=== PATIENT | male | born 1975 | race Caucasian/White ===

== ENCOUNTER 2017-02-04 14:33 | Inpatient (IN) | payer MEDICAID ==
[2017-02-04] MEDS ORDERED: cloNIDine 0.1 MG TABLET PO STA (15:33)
[2017-02-04] MEDS ORDERED: LORazepam 2 MG/ML SYRINGE IVP STA ×3 (15:33→19:52)
[2017-02-04] MEDS ORDERED: SODIUM CHLORIDE 0.9% 1,000 ML IV ONE ×2 (15:33→19:43)
[2017-02-04 16:36] LABS: BASOPHILS # (AUTO) 0.2 10^3/uL (0.0-0.1); BASOPHILS % (AUTO) 1.2 %; EOSINOPHILS # (AUTO) 0.2 10^3/uL (0.0-0.7); EOSINOPHILS % (AUTO) 1.9 %; HCT - HEMATOCRIT 34.5 % (42.0-52.0); HGB - HEMOGLOBIN 10.4 g/dL (14.0-18.0); LYMPHOCYTES # (AUTO) 1.9 10^3/uL (1.5-3.5); LYMPHOCYTES % (AUTO) 15.3 %; MEAN CORPUSCULAR HEMOGLOBIN 20.6 pg (27.0-31.0); MEAN CORPUSCULAR HGB CONC 30.2 g/dL (32.0-36.0); MEAN CORPUSCULAR VOLUME 68.5 fL (80.0-94.0); MEAN PLATELET VOLUME 7.3 fL (7.4-11.4); MONOCYTES # (AUTO) 0.6 10^3/uL (0.0-1.0); MONOCYTES % (AUTO) 4.9 %; NEUTROPHILS # (AUTO) 9.7 10^3/uL (1.5-6.6); NEUTROPHILS % (AUTO) 76.7 %; RED BLOOD COUNT 5.04 10^6/uL (4.70-6.10); RED CELL DISTRIBUTION WIDTH 17.8 % (12.0-15.0); UNCORRECTED WHITE BLOOD COUNT 12.6 x10^3/uL; WHITE BLOOD COUNT 12.6 x10^3/uL (4.8-10.8)
[2017-02-04 16:45] LABS: ALBUMIN/GLOBULIN RATIO 0.7 (1.0-2.2); BILIRUBIN,TOTAL 0.3 mg/dL (0.2-1.0); CALCIUM 8.7 mg/dL (8.5-10.3); CREATININE 1.1 mg/dL (0.6-1.2); POTASSIUM 4.1 mmol/L (3.5-5.0); TOTAL PROTEIN 8.2 g/dL (6.7-8.2)
[2017-02-04] MEDS ORDERED: LORazepam 2 MG/ML SYRINGE ONE ×3 (16:52→20:12)
[2017-02-04 16:57] LABS: PLATELET ESTIMATE, MANUAL INCREASED (>450,000) (NORMAL); PLATELET MORPHOLOGY NORMAL APPEARANCE (NORMAL)
--- NOTE | 2017-02-04 17:35 | ED Physician Documentation ---
History of Present Illness - Stated complaint Stated Complaint: FATIGUE/SOA - Chief complaint Chief Complaint: General - Additonal information Additional information: hx from pt 42 male uses heroin (IM) and daily drinker just released from 5 days of detox his narcotic withdrawal was managed with suboxone and clonidine does not sound like his alcohol withdrawal was addressed he had several abscesses drained and was started on bactrim and keflex blood work was drawn and he was told he was profoundly anemic and needed a transfusion but this was not done pt states he is very weak and that he fell numerous times at detox and he is soa with any exertion no fever cough no calf swelling Review of Systems Constitutional: denies: Fever Cardiac: denies: Chest pain / pressure Respiratory: reports: Dyspnea. denies: Cough GI: denies: Abdominal Pain, Nausea, Vomiting Neurologic: reports: Generalized weakness Endocrine: denies: Easy bruising / bleeding Immunocompromised: denies: Immunocompromised (states had HIV and Hepatitis tests and they were neg) PD PAST MEDICAL HISTORY - Past Medical History Past Medical History: No - Past Surgical History Past Surgical History: No - Present Medications Home Medications: Ambulatory Orders Medication Instructions Recorded Confirmed Buprenorphine HCl/Naloxone HCl 2 tab PO DAILY 02/04/17 02/04/17 [Suboxone 4 mg-1 mg Sl Film] Cephalexin [Keflex] 500 mg PO TID 02/04/17 02/04/17 Sulfamethox/Trimeth 800/160 1 tab PO BID 02/04/17 02/04/17 [Bactrim Ds] cloNIDine [Catapres] 0.1 mg PO DAILY 02/04/17 02/04/17 - Allergies Allergies/Adverse Reactions: Allergies Allergy/AdvReac Type Severity Reaction Status Date / Time No Known Drug Allergies Allergy Verified 02/04/17 14:46 - Social History Does the pt smoke?: No Smoking Status: Never smoker Does the pt drink ETOH?: Yes Does the pt have substance abuse?: Yes Substance Use and Type: Heroin PD ED PE NORMAL - Vitals Vital signs reviewed: Yes - General General: Alert and oriented X 3, Other (pale sweaty shaking) - HEENT HEENT: PERRL - Neck Neck: Supple, no meningeal sign - Cardiac Cardiac: RRR, Other (faint upper sternal border murmur) - Respiratory Respiratory: No respiratory distress, Clear bilaterally - Abdomen Abdomen: Soft, Non tender - Derm Derm: Other (pale sweaty) - Extremities Extremities: No edema, No calf tenderness / cord - Neuro Neuro: Alert and oriented X 3, Other (very weak) Results - Vitals Vitals: Vital Signs - 24 hr 02/04/17 02/04/17 02/04/17 14:43 17:05 17:44 Temperature 36.8 C Heart Rate 98 84 86 Respiratory 22 17 18 Rate Blood Pressure 140/93 H 131/80 H 132/73 H O2 Saturation 100 100 100 02/04/17 02/04/17 19:12 20:00 Temperature Heart Rate 87 92 Respiratory 17 24 Rate Blood Pressure 112/41 L 154/76 H O2 Saturation 100 100 Oxygen O2 Source Room air - EKG (time done) 1628 Rate: Rate (enter#) (80) Rhythm: NSR [place]: Normal Intervals: Normal [place] Ischemia: Normal ST segments - Labs Labs: Laboratory Tests 02/04/17 02/04/17 02/04/17 16:19 16:19 16:19 WBC 12.6 H RBC 5.04 Hgb 10.4 L Hct 34.5 L MCV 68.5 L MCH 20.6 L MCHC 30.2 L RDW 17.8 H Plt Count 559 H MPV 7.3 L Neut # 9.7 H Lymph # 1.9 [place] # 0.6 Eos # 0.2 Baso # 0.2 H Absolute Nucleated RBC 0.00 Nucleated RBCs 0.0 Manual Slide Review Indicated Platelet Estimate INCREASED (>450,000) Platelet Morphology NORMAL APPEARANCE RBC Morph Micro Appear 1+ MICROCYTOSIS Sodium 137 Potassium 4.1 Chloride 102 Carbon Dioxide 25 Anion Gap 10.0 BUN 30 H Creatinine 1.1 Estimated GFR (MDRD) 73 L Glucose 106 H Lactic Acid Calcium 8.7 Total Bilirubin 0.3 AST 37 ALT 60 Alkaline Phosphatase 69 Troponin I < 0.04 Total Protein 8.2 Albumin 3.5 Globulin 4.7 H Albumin/Globulin Ratio 0.7 L Lipase 53 H Blood Type Antibody Screen 02/04/17 02/04/17 16:19 16:19 WBC RBC Hgb Hct MCV MCH MCHC RDW Plt Count MPV Neut # Lymph # [place] # Eos # Baso # Absolute Nucleated RBC Nucleated RBCs Manual Slide Review Platelet Estimate Platelet Morphology RBC Morph Micro Appear Sodium Potassium Chloride Carbon Dioxide Anion Gap BUN Creatinine Estimated GFR (MDRD) Glucose Lactic Acid 1.3 Calcium Total Bilirubin AST ALT Alkaline Phosphatase Troponin I Total Protein Albumin Globulin Albumin/Globulin Ratio Lipase Blood Type A POSITIVE Antibody Screen NEGATIVE - Rads (name of study) CXR Radiology: See rad report (no acute) PD MEDICAL DECISION MAKING - ED course ED course: alcohol withdrawal - txed with ativan narcotic withdawal - gave more clonidine and pt on suboxone and was allowed to take his own while in the ER anemia - not needing a transfusion and not severe enough to be causing weakness and dyspnea dyspnea - no pna on CXR, pr admitted to detox but not immobilized and very restless so doubt he developed a DVT PE faint upper sternal murmur on exam + dyspnea in IVDA meritis echo - echo gone for the day - will obs overnight - if transthoracic and blood cultures are both neg doubt endocarditis, if blood cx + and TTE neg will need transfer to will admit for echo and further tx of etoh and /or narcotic wdrawal Departure - Departure Disposition: 66 [facility] DC/Xfer Clinical Impression: Alcohol withdrawal, Narcotic withdrawal, Dyspnea, Murmur, Anemia
--- NOTE | 2017-02-04 18:12 | XRAY Preliminary Report ---
Exam: XR Chest 1 View IMPRESSION: No acute intrathoracic plain film abnormality. [facility] SITE ID: [id number]
--- NOTE | 2017-02-04 18:15 | XRAY Report ---
EXAM: CHEST RADIOGRAPHY EXAM DATE: 02/04/2017 05:47 PM. CLINICAL HISTORY: Dyspnea. COMPARISON: None. TECHNIQUE: 1 view. FINDINGS: Lungs/Pleura: No focal opacities evident. No pleural effusion. No pneumothorax. Mediastinum: Within exam limitations, cardiomediastinal contour is normal. Other: None. IMPRESSION: No acute intrathoracic plain film abnormality. [facility] Referring Provider Line: [phone] SITE ID: [id number]
[2017-02-04] MEDS ORDERED: FOLIC ACID INJ 1 MG, THIAMINE INJ 100 MG, MAGNESIUM SULFATE 2 GM, MULTIVITAMIN 10 ML in... IV STA ×5 (19:43)
[2017-02-04] MEDS ORDERED: MAGNESIUM SULFATE 2 GRAM 50 ML IV ONE (20:13)
[2017-02-04] MEDS ORDERED: LORazepam 2 MG/ML SYRINGE IM STA (20:25)
[2017-02-04] MEDS ORDERED: ZOLPIDEM 5 MG TABLET PO PRN (20:43)
[2017-02-04] MEDS ORDERED: ONDANSETRON 4 MG/2 ML VIAL IVP PRN (20:43)
[2017-02-04] MEDS ORDERED: PROCHLORPERAZINE 10 MG/2 ML VIAL IVP PRN (20:43)
[2017-02-04] MEDS ORDERED: LORazepam 0.5 MG TABLET PO PRN (20:50)
[2017-02-04] MEDS ORDERED: cloNIDine 0.1 MG TABLET PO PRN (20:50)
[2017-02-04] MEDS: SODIUM CHLORIDE 0.9% 1,000 ML IV SCH (22:58)
[2017-02-04] MEDS: SODIUM CHLORIDE FLUSH 0.9% 10 ML SYRINGE IVP SCH (22:58)
[2017-02-05] MEDS ORDERED: BUPRENORPHINE HCL PO SCH ×3 (01:35→09:00)
[2017-02-05] MEDS ORDERED: NALOXONE HCL PO SCH ×3 (01:35→09:00)
[2017-02-05] MEDS ORDERED: VANCOMYCIN PER PHARMACY 1 GM in SODIUM CHLORIDE 0.9% 250 ML IV SCH (02:00)
[2017-02-05] MEDS ORDERED: VANCOMYCIN INJ 1.25 GM in SODIUM CHLORIDE 0.9% 250 ML IV SCH (02:00)
--- NOTE | 2017-02-05 03:26 | Ultrasound Preliminary Report ---
Exam: US Pelvic - Male IMPRESSION: Heterogeneous abnormalities within the right gluteal region measuring 2.7 x 1.0 x 0.8 cm and 1.1 x 0.9 x 0.5 cm. These are difficult to characterize. Abscesses could account for this appeara nce. [facility] SITE ID: [id number]
--- NOTE | 2017-02-05 03:44 | Ultrasound Report ---
EXAM: PELVIC ULTRASOUND EXAM DATE: 02/05/2017 02:41 AM. CLINICAL HISTORY: Gluteal abscess. COMPARISON: None. TECHNIQUE: Grayscale and color flow images are acquired. FINDINGS: At the clinically noted site of gluteal abscesses, there are two heterogeneous hypoechoic collections . The laterally located dominant collection measures 2.7 x 1.0 x 0.8 cm. Medially located collection measuring 1.1 x 0.9 x 0.5 cm. Both of these collections are relatively avascular. There is a 13 cm lo ng scar obliquely traversing through the right gluteal region. IMPRESSION: Heterogeneous abnormalities within the right gluteal region measuring 2.7 x 1.0 x 0.8 cm and 1.1 x 0. 9 x 0.5 cm. These are difficult to characterize. Abscesses could account for this appearance. [facility] Referring Provider Line: [phone] SITE ID: [id number]
--- NOTE | 2017-02-05 03:55 | HISTORY & PHYSICAL EXAMINATION ---
Chief Complaint - Chief Complaint Chief Complaint: Weakness, fatigue and tremors History of Present Illness - Admitted From Admitted From:: Emergency Department - History Obtained From Records Reviewed: Yes History obtained from: Patient Exam Limitations: None - History of Present Illness HPI Comment/Other: Patient is a 42 year old male with past medical history of iron deficiency anemia, gluteal abscesses, insomnia, chronic back pain and IV drug abuse with heroin who presented to the emergency department with chief complaint of generalized weakness, fatigue and tremors. The patient states that he had been clean from heroin for nearly 10 years but 8 months ago started using again as he was having back pain and insomnia. He states initially when he started back up he was still functional and continuing to work but for the past 1.5 months he has been unable to work and was not functional at all. He continued to use IV heroin all day every day. Finally one week ago he decided he wanted to stop. He went to [facility] for detox. At [place] he was found to have a right gluteal abscess that was drained and he was prescribed antibiotics. There was however no beds at their facility so the patient was sent to a detox facility in [facility]. He states he had to private pay them $ 3000 up front and another $1000 after he started treatment as he did not have any insurance. The patient states that he was started back up on suboxone at the detox facility and they sent him home after 4 days as he no longer had money to pay privately. The patient states that when he arrived at the facility he was able to walk into the facility under his own strength but he needed a wheelchair when he was sent home. He states that since returning home he has been getting weaker and weaker to a point where he can barely stand up. He also states he is very fatigued and gets fatigued and short of breath after just walking 5 feet and cannot get any further because he feels so tired. The patient states that this afternoon he began to have uncontrollable tremors and finally asked his mom to bring him to the hospital because he was too weak to function at home. The patient admits to being diaphoretic, having tremors and being very weak. He states he has felt very cold but does not think he has had any fevers. He states that the abscess on his right gluteal region continues to drain but has not improved despite the antibiotics. He denies any chest pain, orthopnea, increased lower extremity swelling, abdominal pain, nausea, vomiting , urinary symptoms or any focal neurological deficits. Patient was found to be in active withdrawal in the ER as he was having tremors and was too weak to stand up or be able to go home and function. The patient was found to have a leukocytosis and continued to have firm gluteal abscess on the right gluteal area with purulent drainage. He was admitted to the hospital for heroin withdrawal and treatment of his gluteal abscess. Review of Systems - Other Findings Other Findings: A comprehensive review of systems was performed and the pertinent positives and negatives are stated above in the HPI. History - Past Medical History Cardiovascular: reports: Murmur Respiratory: reports: None Neuro: reports: Tremors, Fainting Endocrine/Autoimmune: reports: None GI: reports: None : reports: None HEENT: reports: None Psych: reports: Depression, Anxiety Musculoskeletal: reports: Chronic back pain Derm: reports: None MRSA Hx?: No Other Past Medical History: 1. IV drug abuse with heroin. 2. Insomnia. 3. Chronic back pain. 4. Iron Deficiency Anemia. 5. History of gluteal abscess - Family & Social History Family History: Mother: Alive and Well Family History Comment/Other: No family history of alcohol or drug abuse. No family history of heart disease or stroke. Living arrangement: At home Living Situation: Alone Social History Notes: Patient lives in [place] in a family cabin. He lives alone but his mother also lives on [facility] [address]. The patient does not have any kids or a . He is a olivo by trade. He started using heroin at 20 years of age and was an addict for sometime before he was able to get clean and was on methadone for many years and then switched to suboxone. He states that he did have a short time in his 30s where he went back to using but had been clean for more than 10 years before he started back up 8 months ago. He states he drinks 2-4 beers a day but his last drink was 8 days ago. He does not smoke. - Substance History Use: Uses substance without health or social issues: Alcohol Use Issues: Intoxication Abuse: Recurrent use of substance despite neg consequences: Opioid Dependence: Experiences withdrawal or developed tolerances: Opioid Dependence Issues: Withdrawal - POLST Patient has POLST: No POLST Status: Full Code Meds/Allgy - Home Medications Home Medications: Ambulatory Orders Medication Instructions Recorded Confirmed Buprenorphine HCl/Naloxone HCl 2 tab PO DAILY 02/04/17 02/04/17 [Suboxone 4 mg-1 mg Sl Film] Cephalexin [Keflex] 500 mg PO TID 02/04/17 02/04/17 Sulfamethox/Trimeth 800/160 1 tab PO BID 02/04/17 02/04/17 [Bactrim Ds] cloNIDine [Catapres] 0.1 mg PO DAILY 02/04/17 02/04/17 - Allergies Allergies/Adverse Reactions: Allergies Allergy/AdvReac Type Severity Reaction Status Date / Time No Known Drug Allergies Allergy Verified 02/04/17 14:46 Exam - Vital Signs Reviewed Vital Signs: Yes Vital Signs: Vital Signs x48h Temp Pulse Pulse Resp BP BP Pulse Ox 02/05/17 00:07 36.7 C 98 20 117/75 100 02/04/17 22:06 36.3 C L 107 H 22 139/69 H 99 02/04/17 21:09 89 18 111/80 94 - Physical Exam General Appearance: positive: Moderate distress (Patient is tremulous, diaphoretic and appears quiet ill.), Anxious, Other (He is very thin appearing.) Eyes Bilateral: positive: Normal inspection, PERRL, EOMI, No lid inflammation, Conjunctivae nml, No scleral icterus ENT: positive: ENT inspection nml, Pharynx nml, Dry mucous membranes. negative : Purulent nasal drainage, Pharyngeal erythema, Oral lesions Neck: positive: Nml inspection, Thyroid nml, No JVD, Trachea midline. negative : Thyromegaly, Lymphadenopathy (R), Lymphadenopathy (L), Carotid bruit, Tracheal deviation Respiratory: positive: Chest non-tender, No respiratory distress, Breath sounds nml. negative: Wheezes, Rales, Rhonchi Cardiovascular: positive: Regular rate & rhythm, No gallop, Systolic murmur Peripheral Pulses: positive: 2+ Abdomen: positive: Non-tender, No organomegaly, Nml bowel sounds, No distention. negative: Guarding, Rebound, Hepatomegaly Back: positive: Nml inspection. negative: CVA tenderness (R), CVA tenderness (L ) Skin: positive: Diaphoresis, Other (Right gluteal area is indurated with drainage. 2 separate area appear to have purulent drainage and likely abscess.) . negative: Pallor Extremities: positive: Non-tender, Full ROM, Nml appearance, No pedal edema Neurologic/Psychiatric: positive: Oriented x3, CN's nml (2-12), Motor nml, Sensation nml, Depressed mood/affect (Anxious) Conclusion/Plan - Problem List (1) Heroin withdrawal Conclusion/Plan: Patient appears to be going through active withdrawal as he is tremulous, diaphoretic and extremely fatigued and weak His detox was cut short as he was at a private institution and he ran out of money Patient was sent home with suboxone but has not been doing well Plan: Continue home dose of suboxone Avoid opioids Ativan prn for anxiety Clonidine PO Social work consult for possible placement (2) Heroin abuse Conclusion/Plan: Patient was counselled Will get social work consult to give patient further resources (3) Abscess, gluteal, right Conclusion/Plan: Patient appears to have 2 right gluteal abscesses that were drained 1 week ago but continues to have fluid pocket and drainage Patient has an elevated WBC and was having tremors and chills at home but no fever or other signs of sepsis Plan: CT of pelvis for better see abscess as there maybe deeper abscess present IV vancomycin while hospitalized May need possible Surgery consult for I&D (4) Iron deficiency anemia Conclusion/Plan: Patient has iron deficiency anemia is on iron at home Likely secondary to poor nutrition Continue iron supplementation while hospitalized (5) Fatigue Conclusion/Plan: New onset of fatigue since detox 1 week ago. Patient also describes what appears to almost be exertional dyspnea Could be secondary to withdrawal or de-conditioning from months of heroin Given murmur and concern that this is dyspnea on exertion will get Echocardiogram Patient also is at risk for endocarditis. (6) Prophylactic use of low molecular weight heparin for venous thromboembolism Conclusion/Plan: Place on lovenox - Lab Results Lab results reviewed: Yes Fish Bones: 02/04/17 16:19 02/04/17 16:19 Other Lab Results: Laboratory Results WBC 12.6 x10^3/uL (4.8-10.8) H 02/04/17 16:19 RBC 5.04 10^6/uL (4.70-6.10) 02/04/17 16:19 Hgb 10.4 g/dL (14.0-18.0) L 02/04/17 16:19 Hct 34.5 % (42.0-52.0) L 02/04/17 16:19 MCV 68.5 fL (80.0-94.0) L 02/04/17 16:19 MCH 20.6 pg (27.0-31.0) L 02/04/17 16:19 MCHC 30.2 g/dL (32.0-36.0) L 02/04/17 16:19 RDW 17.8 % (12.0-15.0) H 02/04/17 16:19 Plt Count 559 10^3/uL (130-450) H 02/04/17 16:19 MPV 7.3 fL (7.4-11.4) L 02/04/17 16:19 Neut # 9.7 10^3/uL (1.5-6.6) H 02/04/17 16:19 Lymph # 1.9 10^3/uL (1.5-3.5) 02/04/17 16:19 [place] # 0.6 10^3/uL (0.0-1.0) 02/04/17 16:19 Eos # 0.2 10^3/uL (0.0-0.7) 02/04/17 16:19 Baso # 0.2 10^3/uL (0.0-0.1) H 02/04/17 16:19 Absolute Nucleated RBC 0.00 x10^3/uL 02/04/17 16:19 Nucleated RBCs 0.0 /100WBC 02/04/17 16:19 Manual Slide Review Indicated 02/04/17 16:19 Platelet Estimate INCREASED (>450,000) (NORMAL) 02/04/17 16:19 Platelet Morphology NORMAL APPEARANCE (NORMAL) 02/04/17 16:19 RBC Morph Micro Appear 1+ ANISOCYTOSIS (NORMAL) 1+ MICROCYTOSIS (NORMAL) 16:19 RBC Morph Micro Appear 1+ ANISOCYTOSIS (NORMAL) 1+ MICROCYTOSIS (NORMAL) 16:19 Sodium 137 mmol/L (135-145) 02/04/17 16:19 Potassium 4.1 mmol/L (3.5-5.0) 02/04/17 16:19 Chloride 102 mmol/L (101-111) 02/04/17 16:19 Carbon Dioxide 25 mmol/L (21-32) 02/04/17 16:19 Anion Gap 10.0 (6-13) 02/04/17 16:19 BUN 30 mg/dL (6-20) H 02/04/17 16:19 Creatinine 1.1 mg/dL (0.6-1.2) 02/04/17 16:19 Estimated GFR (MDRD) 73 (>89) L 02/04/17 16:19 Glucose 106 mg/dL (70-100) H 02/04/17 16:19 Lactic Acid 1.3 mmol/L (0.5-2.2) 02/04/17 16:19 Calcium 8.7 mg/dL (8.5-10.3) 02/04/17 16:19 Total Bilirubin 0.3 mg/dL (0.2-1.0) 02/04/17 16:19 AST 37 IU/L (10-42) 02/04/17 16:19 ALT 60 IU/L (10-60) 02/04/17 16:19 Alkaline Phosphatase 69 IU/L (42-121) 02/04/17 16:19 Troponin I < 0.04 ng/mL (<0.49) 02/04/17 16:19 Total Protein 8.2 g/dL (6.7-8.2) 02/04/17 16:19 Albumin 3.5 g/dL (3.2-5.5) 02/04/17 16:19 Globulin 4.7 g/dL (2.1-4.2) H 02/04/17 16:19 Albumin/Globulin Ratio 0.7 (1.0-2.2) L 02/04/17 16:19 Lipase 53 U/L (22-51) H 02/04/17 16:19 Blood Type A POSITIVE 02/04/17 16:19 Antibody Screen NEGATIVE 02/04/17 16:19 - Diagnostic Imaging Results Diagnostic Imaging Results: positive: Final report reviewed Diagnostic Imaging Results Comments: Pelvic Ultrasound: Heterogeneous abnormalities within the right gluteal region measuring 2.7 x 1.0 x 0.8 cm and 1.1 x 0.9 x 0.5 cm. These are difficult to characterize. Abscesses could account for this appearance. Chest Xray: No acute process. - EKG Results EKG Interpreted Independently: Yes EKG Findings: Normal Issues/Core Measures - Anticipated LOS Anticipated Stay Length: Less than 2 midnights - DVT/VTE - Prophylaxis VTE/DVT Prophylaxis med ordered at admit?: Yes
[2017-02-05 06:38] LABS: INR 1.3 (0.8-1.2); PT - PROTHROMBIN TIME 14.6 secs (9.9-12.6)
[2017-02-05 06:41] LABS: ALBUMIN/GLOBULIN RATIO 0.9 (1.0-2.2); BILIRUBIN,TOTAL 0.5 mg/dL (0.2-1.0); CALCIUM 8.8 mg/dL (8.5-10.3); CREATININE 1.1 mg/dL (0.6-1.2); MAGNESIUM 2.1 mg/dL (1.7-2.8); POTASSIUM 3.6 mmol/L (3.5-5.0); TOTAL PROTEIN 7.4 g/dL (6.7-8.2)
[2017-02-05 06:48] LABS: BASOPHILS # (AUTO) 0.2 10^3/uL (0.0-0.1); BASOPHILS % (AUTO) 1.8 %; EOSINOPHILS # (AUTO) 0.3 10^3/uL (0.0-0.7); EOSINOPHILS % (AUTO) 3.3 %; HCT - HEMATOCRIT 30.6 % (42.0-52.0); HGB - HEMOGLOBIN 9.6 g/dL (14.0-18.0); LYMPHOCYTES # (AUTO) 1.7 10^3/uL (1.5-3.5); LYMPHOCYTES % (AUTO) 18.7 %; MEAN CORPUSCULAR HEMOGLOBIN 21.2 pg (27.0-31.0); MEAN CORPUSCULAR HGB CONC 31.2 g/dL (32.0-36.0); MEAN PLATELET VOLUME 7.2 fL (7.4-11.4); MONOCYTES # (AUTO) 0.7 10^3/uL (0.0-1.0); MONOCYTES % (AUTO) 7.3 %; NEUTROPHILS # (AUTO) 6.4 10^3/uL (1.5-6.6); NEUTROPHILS % (AUTO) 68.9 %; RED BLOOD COUNT 4.51 10^6/uL (4.70-6.10); RED CELL DISTRIBUTION WIDTH 18.2 % (12.0-15.0); UNCORRECTED WHITE BLOOD COUNT 9.2 x10^3/uL; WHITE BLOOD COUNT 9.2 x10^3/uL (4.8-10.8)
[2017-02-05] MEDS: PANTOPRAZOLE 40 MG TABLET PO SCH (07:10)
[2017-02-05] MEDS: SODIUM CHLORIDE FLUSH 0.9% 10 ML SYRINGE IVP SCH ×3 (07:15→22:31)
[2017-02-05 07:16] LABS: PLATELET ESTIMATE, MANUAL NORMAL (130-450,000) (NORMAL); PLATELET MORPHOLOGY NORMAL APPEARANCE (NORMAL)
[2017-02-05] MEDS: SODIUM CHLORIDE 0.9% 1,000 ML IV SCH ×2 (07:36→15:55)
[2017-02-05] MEDS: FERROUS SULFATE 325 MG TABLET PO SCH ×2 (08:43→17:39)
[2017-02-05] MEDS: ENOXAPARIN 40 MG/0.4 ML SYRINGE SUBQ SCH (08:43)
[2017-02-05] MEDS: POLYETHYLENE GLYCOL 3350 17 GM PACKET PO SCH (09:40)
[2017-02-05] MEDS ORDERED: CIPROFLOXACIN 400 MG/200 ML 200 ML IV SCH (10:00)
[2017-02-05] MEDS ORDERED: metroNIDAZOLE 500 MG/100 ML 100 ML IV SCH (12:00)
[2017-02-05] MEDS ORDERED: diazePAM INJ 5 MG/ML SYRINGE IVP ONE (13:49)
[2017-02-05] MEDS: SODIUM CHLORIDE FLUSH 0.9% 10 ML SYRINGE IVP PRN ×2 (15:55→17:41)
[2017-02-05] MEDS: CIPROFLOXACIN 400 MG/200 ML 200 ML IV SCH (16:00)
[2017-02-05] MEDS: metroNIDAZOLE 500 MG/100 ML 100 ML IV SCH ×2 (16:13→22:31)
[2017-02-05 16:29] LABS: IMMATURE RETIC FRACTION 0.41; RED BLOOD COUNT 4.19 10^6/uL (4.70-6.10)
[2017-02-05 17:17] LABS: IRON 23 ug/dL (45-182); TOTAL IRON BINDING CAPACITY 234 ug/dL (250-450); TRANSFERRIN 167 mg/dL (180-329)
[2017-02-05 17:21] LABS: FERRITIN 315.4 ng/mL (23.9-336.2)
[2017-02-05] MEDS: VANCOMYCIN INJ 1.25 GM in SODIUM CHLORIDE 0.9% 250 ML IV SCH (17:41)
[2017-02-05 17:55] LABS: BILIRUBIN,URINE NEGATIVE (NEGATIVE); PH,URINE 5.5 PH (5.0-7.5)
[2017-02-05 18:19] LABS: WBC,URINE 0-3 /HPF (0-3)
[2017-02-05 18:20] LABS: UR CULTURE IF IND NOT INDICATED
[2017-02-05] MEDS ORDERED: PATIENT OWN CONTROLLED 1 EACH ONE (20:57)
[2017-02-05] MEDS: SILVER SULFADIAZINE CREAM 25 GM TUBE TOP SCH (21:03)
[2017-02-06] MEDS: CIPROFLOXACIN 400 MG/200 ML 200 ML IV SCH ×2 (03:37→16:42)
[2017-02-06] MEDS: metroNIDAZOLE 500 MG/100 ML 100 ML IV SCH ×4 (04:46→21:56)
[2017-02-06] MEDS: VANCOMYCIN INJ 1.25 GM in SODIUM CHLORIDE 0.9% 250 ML IV SCH ×2 (06:00→17:59)
[2017-02-06] MEDS: SODIUM CHLORIDE FLUSH 0.9% 10 ML SYRINGE IVP SCH ×3 (06:03→21:56)
[2017-02-06] MEDS: PANTOPRAZOLE 40 MG TABLET PO SCH (06:03)
[2017-02-06 08:28] LABS: BASOPHILS # (AUTO) 0.2 10^3/uL (0.0-0.1); EOSINOPHILS # (AUTO) 0.3 10^3/uL (0.0-0.7); EOSINOPHILS % (AUTO) 3.4 %; HCT - HEMATOCRIT 30.8 % (42.0-52.0); HGB - HEMOGLOBIN 9.6 g/dL (14.0-18.0); LYMPHOCYTES # (AUTO) 1.3 10^3/uL (1.5-3.5); LYMPHOCYTES % (AUTO) 16.9 %; MEAN CORPUSCULAR HEMOGLOBIN 21.2 pg (27.0-31.0); MEAN CORPUSCULAR HGB CONC 31.2 g/dL (32.0-36.0); MEAN CORPUSCULAR VOLUME 67.8 fL (80.0-94.0); MEAN PLATELET VOLUME 7.2 fL (7.4-11.4); MONOCYTES # (AUTO) 0.4 10^3/uL (0.0-1.0); MONOCYTES % (AUTO) 5.5 %; NEUTROPHILS # (AUTO) 5.6 10^3/uL (1.5-6.6); NEUTROPHILS % (AUTO) 71.2 %; RED BLOOD COUNT 4.54 10^6/uL (4.70-6.10); RED CELL DISTRIBUTION WIDTH 18.5 % (12.0-15.0); UNCORRECTED WHITE BLOOD COUNT 7.9 x10^3/uL; WHITE BLOOD COUNT 7.9 x10^3/uL (4.8-10.8)
[2017-02-06 08:39] LABS: ALBUMIN/GLOBULIN RATIO 0.8 (1.0-2.2); BILIRUBIN,TOTAL 0.6 mg/dL (0.2-1.0); CALCIUM 8.7 mg/dL (8.5-10.3); CREATININE 0.8 mg/dL (0.6-1.2); MAGNESIUM 2.1 mg/dL (1.7-2.8); POTASSIUM 3.3 mmol/L (3.5-5.0); TOTAL PROTEIN 7.1 g/dL (6.7-8.2)
[2017-02-06] MEDS: FERROUS SULFATE 325 MG TABLET PO SCH ×2 (08:43→17:56)
[2017-02-06] MEDS: SODIUM CHLORIDE 0.9% 1,000 ML IV SCH ×2 (08:43→15:07)
[2017-02-06] MEDS: ENOXAPARIN 40 MG/0.4 ML SYRINGE SUBQ SCH (08:43)
[2017-02-06] MEDS: SILVER SULFADIAZINE CREAM 25 GM TUBE TOP SCH ×2 (08:44→22:15)
[2017-02-06 08:50] LABS: PLATELET ESTIMATE, MANUAL NORMAL (130-450,000) (NORMAL); PLATELET MORPHOLOGY NORMAL APPEARANCE (NORMAL)
[2017-02-06] MEDS ORDERED: CYANOCOBALAMIN 1,000 MCG/ML VIAL IM ONE (09:22)
[2017-02-06] MEDS ORDERED: MULTIVITAMIN 10 ML, FOLIC ACID INJ 1 MG, THIAMINE INJ 100 MG, MAGNESIUM SULFATE 2 GM in... IV SCH ×5 (10:00)
[2017-02-06] MEDS ORDERED: FERROUS SULFATE 300 MG/5 ML UDC PO SCH (10:00)
--- NOTE | 2017-02-06 10:18 | PROVIDER PROGRESS NOTE ---
Assessment/Plan - Problem List (1) Abscess, gluteal, right Assessment/Plan: acute. Dr lopes with ortho seen patient and wound care has packed wound with good drainage. will see patient in outpatient setting MAC after discharge. continue with antibiotics IV Vancomycin and transition to oral outpatient tomorrow or Wednesday. (2) Iron deficiency anemia secondary to inadequate dietary iron intake Assessment/Plan: acute with (3) Heroin abuse Assessment/Plan: acute on chronic. continue on suboxone and with counseling. will need outpatient followup (4) Hypokalemia due to loss of potassium Assessment/Plan: acute. will replace with oral potassium and monitor levels with daily lab draws (5) Acute hyponatremia Assessment/Plan: acute with other electrolyte imbalances. will continue on IVF for hydration and continue to monitor with daily lab draws. (6) Alcohol withdrawal Qualifiers: Complication of substance-induced condition: with unspecified complication Qualified Code(s): F10.239 - Alcohol dependence with withdrawal, unspecified Assessment/Plan: acute on chronic with tremors. continue with banana bag and on CIWA protocol. patient has ativan for agitation and on clonidine for BP and withdrawal. - Current Meds Current Meds: Current Medications Generic Name Dose Route Start Last Admin Trade Name Freq PRN Reason Stop Dose Admin Enoxaparin Sodium 40 mg 02/05/17 09:00 02/06/17 08:43 Lovenox SUBQ 40 mg DAILY ALEXI Administration Ferrous Sulfate 325 mg 02/05/17 08:00 02/06/17 08:43 Feosol PO 325 mg BIDWM ALEXI Administration Sodium Chloride 1,000 mls @ 100 mls/hr 02/04/17 21:00 02/06/17 08:43 Normal Saline 0.9% IV 100 mls/hr .Q10H ALEXI Administration Ciprofloxacin 200 mls @ 200 mls/hr 02/05/17 16:00 02/06/17 03:37 Cipro 400 Mg/200 Ml IV 200 mls/hr Q12H ALEXI Administration Metronidazole 100 mls @ 100 mls/hr 02/05/17 16:00 02/06/17 04:46 Flagyl 500 Mg/100 Ml IV 100 mls/hr Q6H ALEXI Administration Vancomycin HCl 1.25 gm/ Sodium 250 mls @ 167 mls/hr 02/05/17 17:00 02/06/17 06: 00 Chloride IV 167 mls/hr Q12H ALEXI Administration Pantoprazole Sodium 40 mg 02/05/17 07:00 02/06/17 06:03 Protonix PO 40 mg QDAC ALEXI Administration Suboxone 8 Mg-2 Mg 1 each 02/06/17 09:00 02/06/17 07:48 Sl Film PO 1 each BID ALEXI Administration Polyethylene Glycol 17 gm 02/05/17 09:00 02/05/17 09:40 Miralax PO Not Given DAILY ALEXI Silver Sulfadiazine 1 applic 02/05/17 21:00 02/06/17 08:44 Silvadene Cream TOP 1 applic BID ALEXI Administration Sodium Chloride 10 ml 02/04/17 20:43 02/05/17 17:41 Normal Saline Flush 0.9% IVP 10 ml PRN PRN Administration NEEDED PER PROVIDER ORDERS Sodium Chloride 10 ml 02/04/17 22:00 02/06/17 06:03 Normal Saline Flush 0.9% IVP Not Given Q8HR ALEXI - Lab Result Lab results reviewed: Yes Fish Bone Diagrams: 02/06/17 08:19 02/06/17 08:19 Other Lab Results: Abnormal Lab Results 02/04/17 02/04/17 02/05/17 16:19 16:19 06:21 WBC 12.6 x10^3/uL H x10^3/uL (4.8-10.8) RBC 4.51 10^6/uL L 10^6/uL (4.70-6.10) Hgb 10.4 g/dL L g/dL 9.6 g/dL L g/dL (14.0-18.0) (14.0-18.0) Hct 34.5 % L % 30.6 % L % (42.0-52.0) (42.0-52.0) MCV 68.5 fL L fL 68.0 fL L fL (80.0-94.0) (80.0-94.0) MCH 20.6 pg L pg 21.2 pg L pg (27.0-31.0) (27.0-31.0) MCHC 30.2 g/dL L g/dL 31.2 g/dL L g/dL (32.0-36.0) (32.0-36.0) RDW 17.8 % H % 18.2 % H % (12.0-15.0) (12.0-15.0) Plt Count 559 10^3/uL H 10^3/uL 470 10^3/uL H 10^3/uL (130-450) (130-450) MPV 7.3 fL L fL 7.2 fL L fL (7.4-11.4) (7.4-11.4) Neut # 9.7 10^3/uL H 10^3/uL (1.5-6.6) Lymph # Baso # 0.2 10^3/uL H 10^3/uL 0.2 10^3/uL H 10^3/uL (0.0-0.1) (0.0-0.1) PT INR Potassium BUN 30 mg/dL H mg/dL (6-20) Estimated GFR (MDRD) 73 L (>89) Glucose 106 mg/dL H mg/dL (70-100) Iron TIBC % Saturation Transferrin Globulin 4.7 g/dL H g/dL (2.1-4.2) Albumin/Globulin Ratio 0.7 L (1.0-2.2) Amylase Lipase 53 U/L H U/L (22-51) Ur Specific [place] 02/05/17 02/05/17 02/05/17 06:21 06:21 16:15 WBC RBC 4.19 10^6/uL L 10^6/uL (4.70-6.10) Hgb Hct MCV MCH MCHC RDW Plt Count MPV Neut # Lymph # Baso # PT 14.6 secs H secs (9.9-12.6) INR 1.3 H (0.8-1.2) Potassium BUN 26 mg/dL H mg/dL (6-20) Estimated GFR (MDRD) 73 L (>89) Glucose Iron TIBC % Saturation Transferrin Globulin Albumin/Globulin Ratio 0.9 L (1.0-2.2) Amylase Lipase Ur Specific [place] 02/05/17 02/05/17 02/06/17 16:15 17:20 08:19 WBC RBC 4.54 10^6/uL L 10^6/uL (4.70-6.10) Hgb 9.6 g/dL L g/dL (14.0-18.0) Hct 30.8 % L % (42.0-52.0) MCV 67.8 fL L fL (80.0-94.0) MCH 21.2 pg L pg (27.0-31.0) MCHC 31.2 g/dL L g/dL (32.0-36.0) RDW 18.5 % H % (12.0-15.0) Plt Count MPV 7.2 fL L fL (7.4-11.4) Neut # Lymph # 1.3 10^3/uL L 10^3/uL (1.5-3.5) Baso # 0.2 10^3/uL H 10^3/uL (0.0-0.1) PT INR Potassium BUN Estimated GFR (MDRD) Glucose Iron 23 ug/dL L ug/dL (45-182) TIBC 234 ug/dL L ug/dL (250-450) % Saturation 10 % L % (20-50) Transferrin 167 mg/dL L mg/dL (180-329) Globulin Albumin/Globulin Ratio Amylase Lipase Ur Specific [place] >=1.030 H (1.002-1.030) 02/06/17 08:19 WBC RBC Hgb Hct MCV MCH MCHC RDW Plt Count MPV Neut # Lymph # Baso # PT INR Potassium 3.3 mmol/L L mmol/L (3.5-5.0) BUN Estimated GFR (MDRD) Glucose Iron TIBC % Saturation Transferrin Globulin Albumin/Globulin Ratio 0.8 L (1.0-2.2) Amylase 106 U/L H U/L (28-100) Lipase Ur Specific [place] - EKG Results EKG Interpreted Independently: No - Diagnostic Imaging Results Diagnostic Imaging Results: Final report reviewed Diagnostic Imaging Results Comments: abscess to gluteal fold of buttock with resolution and improving - Additional Planning Condition/Complexity: Improved My Orders: My Active Orders 02/05/17 16:00 Ciprofloxacin 400 mg/200 ml [Cipro 400 mg/200 ml] 200 ml IV Q12H metroNIDAZOLE 500 MG/100 ML [Flagyl 500 mg/100 ml] 100 ml IV Q6H 02/06/17 09:00 Docusate Sodium 250Mg Capsule [Colace 250Mg Capsule] 250 - 500 mg PO DAILY Patient Own Controlled 1 each PO BID Senna [Senokot] 8.6 - 17.2 mg PO DAILY 02/06/17 10:00 Multivitamin [Infuvite] 10 ml Folic Acid Inj 1 mg Thiamine Inj [Vitamin B-1 Inj ] 100 mg Magnesium Sulfate 2 gm Sodium Chloride 0.9% [Normal Saline 0.9%] 1, 000 ml IV DAILY Consult/Specialty: Surgery Plan Discussed with:: Patient, Mother, Case Management (Patient will need another 24-48 hours for management of withdrawal and abscess with IV antibiotics. will transition to oral pending sensitivities of wound and blood cultures) Time Spent: 31-60 minutes Subjective - Subjective Patient Reports: Feeling Better, Resting Comfortably, No Complaints, Other ( tremors are improving and no signs of agitation) Nursing Reports: No Complaints, Other (improving CIWA scale improving) Objective Vital Signs: Vital Signs - 24 hr 02/05/17 02/05/17 02/05/17 12:56 14:18 16:03 Temperature 37.2 C 36.7 C 36.9 C Heart Rate [ 82 79 78 Brachial] Respiratory 16 16 14 Rate Blood Pressure 124/74 125/68 113/60 [Right Brachial artery] O2 Saturation 100 100 100 02/05/17 02/06/17 23:47 07:47 Temperature 36.9 C 36.7 C Heart Rate [ 75 77 Brachial] Respiratory 15 18 Rate Blood Pressure 124/65 121/62 [Right Brachial artery] O2 Saturation 99 100 Oxygen O2 Source Room air I&O (Last 24 Hrs): Intake and Output Totals x24h 02/04/17 02/05/17 02/06/17 23:59 23:59 23:59 Intake Total 1403 1214 Balance 1403 1214 General: Alert, Oriented x3, Cooperative HEENT: Atraumatic, PERRLA Neck: Supple, No JVD, No thyromegaly Lymphatic: no adenopathy Neuro: Alert, CN 2-12 Grossly Intact, Oriented Times 3 Cardiovascular: Regular rate, Normal S1, Normal S2 Respiratory: No respiratory distress, Breath sounds nml Abdomen: Normal bowel sounds, No tenderness, No masses Extremities: No clubbing, No cyanosis, No edema, Normal pulses, No tenderness/ swelling Skin: No rashes Comments/Notes: right buttock with clean dry dressing from abscess drained. clearing edema and erythema to area - Results Results: Laboratory Results WBC 7.9 x10^3/uL (4.8-10.8) 02/06/17 08:19 RBC 4.54 10^6/uL (4.70-6.10) L 02/06/17 08:19 Hgb 9.6 g/dL (14.0-18.0) L 02/06/17 08:19 Hct 30.8 % (42.0-52.0) L 02/06/17 08:19 MCV 67.8 fL (80.0-94.0) L 02/06/17 08:19 MCH 21.2 pg (27.0-31.0) L 02/06/17 08:19 MCHC 31.2 g/dL (32.0-36.0) L 02/06/17 08:19 RDW 18.5 % (12.0-15.0) H 02/06/17 08:19 Plt Count 430 10^3/uL (130-450) 02/06/17 08:19 MPV 7.2 fL (7.4-11.4) L 02/06/17 08:19 Reticulocyte % (Auto) 1.27 % (0.5-2.3) 02/05/17 16:15 Neut # 5.6 10^3/uL (1.5-6.6) 02/06/17 08:19 Lymph # 1.3 10^3/uL (1.5-3.5) L 02/06/17 08:19 [place] # 0.4 10^3/uL (0.0-1.0) 02/06/17 08:19 Eos # 0.3 10^3/uL (0.0-0.7) 02/06/17 08:19 Baso # 0.2 10^3/uL (0.0-0.1) H 02/06/17 08:19 Absolute Nucleated RBC 0.00 x10^3/uL 02/06/17 08:19 Nucleated RBCs 0.0 /100WBC 02/06/17 08:19 Manual Slide Review Indicated 02/06/17 08:19 Platelet Estimate NORMAL (130-450,000) (NORMAL) 02/06/17 08:19 Platelet Morphology NORMAL APPEARANCE (NORMAL) 02/06/17 08:19 RBC Morph Micro Appear 2+ MICROCYTOSIS (NORMAL) 2+ HYPOCHROMASIA (NORMAL) 02/05/17 06:21 RBC Morph Micro Appear 2+ MICROCYTOSIS (NORMAL) 2+ HYPOCHROMASIA (NORMAL) 02/05/17 06:21 RBC Morph Micro Appear 2+ ANISOCYTOSIS (NORMAL) 1+ POLYCHROMASIA (NORMAL) 1 + HYPOCHROMASIA (NORMAL) 1+ OVALOCYTES (NORMAL) 02/06/17 08:19 RBC Morph Micro Appear 2+ ANISOCYTOSIS (NORMAL) 1+ POLYCHROMASIA (NORMAL) 1 + HYPOCHROMASIA (NORMAL) 1+ OVALOCYTES (NORMAL) 02/06/17 08:19 RBC Morph Micro Appear 2+ ANISOCYTOSIS (NORMAL) 1+ POLYCHROMASIA (NORMAL) 1 + HYPOCHROMASIA (NORMAL) 1+ OVALOCYTES (NORMAL) 02/06/17 08:19 RBC Morph Micro Appear 2+ ANISOCYTOSIS (NORMAL) 1+ POLYCHROMASIA (NORMAL) 1 + HYPOCHROMASIA (NORMAL) 1+ OVALOCYTES (NORMAL) 02/06/17 08:19 Absolute Retic 0.053 10^6/uL (0.020-0.110) 02/05/17 16:15 PT 14.6 secs (9.9-12.6) H 02/05/17 06:21 INR 1.3 (0.8-1.2) H 02/05/17 06:21 Sodium 140 mmol/L (135-145) 02/06/17 08:19 Potassium 3.3 mmol/L (3.5-5.0) L 02/06/17 08:19 Chloride 107 mmol/L (101-111) 02/06/17 08:19 Carbon Dioxide 24 mmol/L (21-32) 02/06/17 08:19 Anion Gap 9.0 (6-13) 02/06/17 08:19 BUN 14 mg/dL (6-20) 02/06/17 08:19 Creatinine 0.8 mg/dL (0.6-1.2) 02/06/17 08:19 Estimated GFR (MDRD) 105 (>89) 02/06/17 08:19 Glucose 97 mg/dL (70-100) 02/06/17 08:19 Lactic Acid 0.9 mmol/L (0.5-2.2) 02/05/17 06:21 Calcium 8.7 mg/dL (8.5-10.3) 02/06/17 08:19 Phosphorus 4.0 mg/dL (2.5-4.6) 02/05/17 06:21 Magnesium 2.1 mg/dL (1.7-2.8) 02/06/17 08:19 Iron 23 ug/dL (45-182) L 02/05/17 16:15 TIBC 234 ug/dL (250-450) L 02/05/17 16:15 % Saturation 10 % (20-50) L 02/05/17 16:15 Transferrin 167 mg/dL (180-329) L 02/05/17 16:15 Ferritin 315.4 ng/mL (23.9-336.2) 02/05/17 16:15 Total Bilirubin 0.6 mg/dL (0.2-1.0) 02/06/17 08:19 AST 23 IU/L (10-42) 02/06/17 08:19 ALT 39 IU/L (10-60) 02/06/17 08:19 Alkaline Phosphatase 54 IU/L (42-121) 02/06/17 08:19 Lactate Dehydrogenase 146 IU/L (91-225) 02/05/17 16:15 Troponin I < 0.04 ng/mL (<0.49) 02/04/17 16:19 Total Protein 7.1 g/dL (6.7-8.2) 02/06/17 08:19 Albumin 3.2 g/dL (3.2-5.5) 02/06/17 08:19 Globulin 3.9 g/dL (2.1-4.2) 02/06/17 08:19 Albumin/Globulin Ratio 0.8 (1.0-2.2) L 02/06/17 08:19 Amylase 106 U/L (28-100) H 02/06/17 08:19 Lipase 51 U/L (22-51) 02/06/17 08:19 Vitamin B12 313 pg/mL (180-914) 02/05/17 16:15 Urine Color YELLOW 02/05/17 17:20 Urine Clarity CLEAR (CLEAR) 02/05/17 17:20 Urine pH 5.5 PH (5.0-7.5) 02/05/17 17:20 Ur Specific [place] >=1.030 (1.002-1.030) H 02/05/17 17:20 Urine Protein NEGATIVE mg/dL (NEGATIVE) 02/05/17 17:20 Urine Glucose (UA) NEGATIVE mg/dL (NEGATIVE) 02/05/17 17:20 Urine Ketones NEGATIVE mg/dL (NEGATIVE) 02/05/17 17:20 Urine Occult Blood NEGATIVE (NEGATIVE) 02/05/17 17:20 Urine Nitrite NEGATIVE (NEGATIVE) 02/05/17 17:20 Urine Bilirubin NEGATIVE (NEGATIVE) 02/05/17 17:20 Urine Urobilinogen 0.2 (NORMAL) E.U./dL (NORMAL) 02/05/17 17:20 Ur Leukocyte Esterase NEGATIVE (NEGATIVE) 02/05/17 17:20 Urine RBC 0-5 /HPF (0-5) 02/05/17 17:20 Urine WBC 0-3 /HPF (0-3) 02/05/17 17:20 Ur Squamous Epith Cells NONE SEEN (<= Few) 02/05/17 17:20 Urine Bacteria None Seen /HPF (None Seen) 02/05/17 17:20 Urine Culture Comments NOT INDICATED 02/05/17 17:20 Blood Type A POSITIVE 02/04/17 16:19 Antibody Screen NEGATIVE 02/04/17 16:19
[2017-02-06] MEDS: POLYETHYLENE GLYCOL 3350 17 GM PACKET PO SCH (10:58)
[2017-02-06] MEDS: DOCUSATE SODIUM 250 MG CAPSULE PO SCH (10:58)
[2017-02-06] MEDS: SENNA 8.6 MG TABLET PO SCH (10:59)
[2017-02-06] MEDS: CHOLECALCIFEROL 5,000 UNIT CAPSULE PO SCH ×2 (17:56→21:56)
[2017-02-06] MEDS: SODIUM CHLORIDE FLUSH 0.9% 10 ML SYRINGE IVP PRN (20:00)
[2017-02-07] MEDS: SODIUM CHLORIDE 0.9% 1,000 ML IV SCH ×3 (01:13→18:20)
[2017-02-07] MEDS: CIPROFLOXACIN 400 MG/200 ML 200 ML IV SCH (03:12)
[2017-02-07] MEDS: ACETAMINOPHEN 325 MG TABLET PO PRN ×2 (04:12→12:53)
[2017-02-07] MEDS: metroNIDAZOLE 500 MG/100 ML 100 ML IV SCH ×2 (05:21→12:50)
[2017-02-07] MEDS: VANCOMYCIN INJ 1.25 GM in SODIUM CHLORIDE 0.9% 250 ML IV SCH (05:28)
[2017-02-07] MEDS: PANTOPRAZOLE 40 MG TABLET PO SCH (06:01)
[2017-02-07] MEDS: SODIUM CHLORIDE FLUSH 0.9% 10 ML SYRINGE IVP SCH ×3 (06:02→21:46)
[2017-02-07 06:03] LABS: BASOPHILS # (AUTO) 0.1 10^3/uL (0.0-0.1); BASOPHILS % (AUTO) 1.4 %; EOSINOPHILS # (AUTO) 0.3 10^3/uL (0.0-0.7); EOSINOPHILS % (AUTO) 4.1 %; HCT - HEMATOCRIT 28.1 % (42.0-52.0); HGB - HEMOGLOBIN 8.8 g/dL (14.0-18.0); LYMPHOCYTES # (AUTO) 1.6 10^3/uL (1.5-3.5); LYMPHOCYTES % (AUTO) 23.5 %; MEAN CORPUSCULAR HEMOGLOBIN 21.4 pg (27.0-31.0); MEAN CORPUSCULAR HGB CONC 31.2 g/dL (32.0-36.0); MEAN CORPUSCULAR VOLUME 68.5 fL (80.0-94.0); MEAN PLATELET VOLUME 7.7 fL (7.4-11.4); MONOCYTES # (AUTO) 0.5 10^3/uL (0.0-1.0); MONOCYTES % (AUTO) 7.5 %; NEUTROPHILS # (AUTO) 4.4 10^3/uL (1.5-6.6); NEUTROPHILS % (AUTO) 63.5 %; NUCLEATED RED BLOOD CELLS AUTO 0.1 /100WBC; RED CELL DISTRIBUTION WIDTH 18.1 % (12.0-15.0); UNCORRECTED WHITE BLOOD COUNT 6.9 x10^3/uL; WHITE BLOOD COUNT 6.9 x10^3/uL (4.8-10.8)
[2017-02-07 06:08] LABS: ALBUMIN/GLOBULIN RATIO 0.8 (1.0-2.2); BILIRUBIN,TOTAL 0.6 mg/dL (0.2-1.0); CALCIUM 8.2 mg/dL (8.5-10.3); CREATININE 0.6 mg/dL (0.6-1.2); TOTAL PROTEIN 6.4 g/dL (6.7-8.2)
--- NOTE | 2017-02-07 08:02 | PROVIDER PROGRESS NOTE ---
Assessment/Plan - Problem List (1) Abscess, gluteal, right Assessment/Plan: acute and improving. continue on antibiotics with transition to oral bactrim and flagyl. will need outpatient in the [facility] [place] center in 2 weeks for wound care. continue to monitor CBC with daily lab draws (2) Iron deficiency anemia secondary to inadequate dietary iron intake Assessment/Plan: acute on chronic. continue with ferrous sulfate daily and monitor CBC (3) Heroin abuse Assessment/Plan: acute improving. continue to encourage cessation and provide education. scoring 0 on CIWA scale this time. continue on suboxone home dosage (4) Hypokalemia due to loss of potassium Assessment/Plan: acute now resolved. continue to monitor potassium level with daily lab draws (5) Acute hyponatremia Assessment/Plan: acute. resolved now. continue to monitor sodium levels with daily lab draws (6) Alcohol withdrawal Qualifiers: Complication of substance-induced condition: with unspecified complication Qualified Code(s): F10.239 - Alcohol dependence with withdrawal, unspecified Assessment/Plan: acute on chronic and improving. continue with ativan as needed for agitation and CIWA protocol. scoring 0 now. provide education regarding cessation. - Current Meds Current Meds: Current Medications Generic Name Dose Route Start Last Admin Trade Name Freq PRN Reason Stop Dose Admin Acetaminophen 650 mg 02/04/17 20:43 02/07/17 04:12 Tylenol PO 650 mg Q4HR PRN Administration Pain 1 to 4 Cholecalciferol 5,000 unit 02/06/17 16:00 02/06/17 21:56 Vitamin D3 PO 5,000 unit BID ALEXI Administration Docusate Sodium 250 - 500 mg 02/06/17 09:00 02/06/17 10:58 Colace 250mg Capsule PO Not Given DAILY ALEXI Enoxaparin Sodium 40 mg 02/05/17 09:00 02/06/17 08:43 Lovenox SUBQ 40 mg DAILY ALEXI Administration Ferrous Sulfate 325 mg 02/05/17 08:00 02/06/17 17:56 Feosol PO 325 mg BIDWM ALEXI Administration Sodium Chloride 1,000 mls @ 100 mls/hr 02/04/17 21:00 02/07/17 03:12 Normal Saline 0.9% IV 100 mls/hr .Q10H ALEXI Administration Ciprofloxacin 200 mls @ 200 mls/hr 02/05/17 16:00 02/07/17 03:12 Cipro 400 Mg/200 Ml IV 200 mls/hr Q12H ALEXI Administration Metronidazole 100 mls @ 100 mls/hr 02/05/17 16:00 02/07/17 05:21 Flagyl 500 Mg/100 Ml IV 100 mls/hr Q6H ALEXI Administration Multivitamins 10 ml/ Folic 1,015.2 mls @ 100 mls/hr 02/06/17 10:00 02/06/17 11: 48 Acid 1 mg/ Thiamine HCl 100 mg IV 100 mls/hr / Magnesium Sulfate 2 gm/ DAILY ALEXI Administration Sodium Chloride Pantoprazole Sodium 40 mg 02/05/17 07:00 02/07/17 06:01 Protonix PO 40 mg QDAC ALEXI Administration Suboxone 8 Mg-2 Mg 1 each 02/07/17 06:00 02/07/17 06:02 Sl Film PO 1 each ALEXI Administration Polyethylene Glycol 17 gm 02/05/17 09:00 02/06/17 10:58 Miralax PO Not Given DAILY ALEXI Senna 8.6 - 17.2 mg 02/06/17 09:00 02/06/17 10:59 Senokot PO Not Given DAILY ALEXI Silver Sulfadiazine 1 applic 02/05/17 21:00 02/06/17 22:15 Silvadene Cream TOP 1 applic BID ALEXI Administration Sodium Chloride 10 ml 02/04/17 20:43 02/06/17 20:00 Normal Saline Flush 0.9% IVP 10 ml PRN PRN Administration NEEDED PER PROVIDER ORDERS Sodium Chloride 10 ml 02/04/17 22:00 02/07/17 06:02 Normal Saline Flush 0.9% IVP 10 ml Q8HR ALEXI Administration - Lab Result Lab results reviewed: Yes Fish Bone Diagrams: 02/07/17 05:10 02/07/17 05:10 Other Lab Results: Abnormal Lab Results 02/05/17 02/05/17 02/05/17 16:15 16:15 17:20 RBC 4.19 10^6/uL L 10^6/uL (4.70-6.10) Hgb Hct MCV MCH MCHC RDW MPV Lymph # Baso # Potassium Calcium Iron 23 ug/dL L ug/dL (45-182) TIBC 234 ug/dL L ug/dL (250-450) % Saturation 10 % L % (20-50) Transferrin 167 mg/dL L mg/dL (180-329) Total Protein Albumin Albumin/Globulin Ratio Amylase Ur Specific [place] >=1.030 H (1.002-1.030) 02/06/17 02/06/17 02/07/17 08:19 08:19 05:10 RBC 4.54 10^6/uL L 10^6/uL 4.10 10^6/uL L 10^6/uL (4.70-6.10) (4.70-6.10) Hgb 9.6 g/dL L g/dL 8.8 g/dL L g/dL (14.0-18.0) (14.0-18.0) Hct 30.8 % L % 28.1 % L % (42.0-52.0) (42.0-52.0) MCV 67.8 fL L fL 68.5 fL L fL (80.0-94.0) (80.0-94.0) MCH 21.2 pg L pg 21.4 pg L pg (27.0-31.0) (27.0-31.0) MCHC 31.2 g/dL L g/dL 31.2 g/dL L g/dL (32.0-36.0) (32.0-36.0) RDW 18.5 % H % 18.1 % H % (12.0-15.0) (12.0-15.0) MPV 7.2 fL L fL (7.4-11.4) Lymph # 1.3 10^3/uL L 10^3/uL (1.5-3.5) Baso # 0.2 10^3/uL H 10^3/uL (0.0-0.1) Potassium 3.3 mmol/L L mmol/L (3.5-5.0) Calcium Iron TIBC % Saturation Transferrin Total Protein Albumin Albumin/Globulin Ratio 0.8 L (1.0-2.2) Amylase 106 U/L H U/L (28-100) Ur Specific [place] 02/07/17 05:10 RBC Hgb Hct MCV MCH MCHC RDW MPV Lymph # Baso # Potassium Calcium 8.2 mg/dL L mg/dL (8.5-10.3) Iron TIBC % Saturation Transferrin Total Protein 6.4 g/dL L g/dL (6.7-8.2) Albumin 2.9 g/dL L g/dL (3.2-5.5) Albumin/Globulin Ratio 0.8 L (1.0-2.2) Amylase Ur Specific [place] - EKG Results EKG Interpreted Independently: No - Additional Planning Condition/Complexity: Improved My Orders: My Active Orders 02/06/17 09:00 Docusate Sodium 250Mg Capsule [Colace 250Mg Capsule] 250 - 500 mg PO DAILY Senna [Senokot] 8.6 - 17.2 mg PO DAILY 02/06/17 10:00 Multivitamin [Infuvite] 10 ml Folic Acid Inj 1 mg Thiamine Inj [Vitamin B-1 Inj ] 100 mg Magnesium Sulfate 2 gm Sodium Chloride 0.9% [Normal Saline 0.9%] 1, 000 ml IV DAILY 02/06/17 16:00 Cholecalciferol [Vitamin D3] 5,000 unit PO BID 02/07/17 09:00 Sulfamethox/Trimeth 800/160 [Bactrim Ds 800/160] 1 tab PO BID 02/07/17 16:30 VANCOMYCIN TROUGH [CHEM] Timed Consult/Specialty: OT, PT, Surgery Plan Discussed with:: Patient, Family, Mother Time Spent: 31-60 minutes Additional Planning Notes: Patient is planning discharge in the morning with followup with outpatient substance abuse. patient has insurance now and can be treated. family support addressed. Subjective - Subjective Patient Reports: Feeling Better, Resting Comfortably, No Complaints Nursing Reports: No Complaints Objective Vital Signs: Vital Signs - 24 hr 02/06/17 02/06/17 02/07/17 12:37 16:30 01:48 Temperature 36.9 C 36.7 C 36.8 C Heart Rate [ 73 73 70 Brachial] Respiratory 16 16 16 Rate Blood Pressure 132/67 H 128/68 116/63 [Right Brachial artery] O2 Saturation 100 100 98 Oxygen O2 Source Room air I&O (Last 24 Hrs): Intake and Output Totals x24h 02/05/17 02/06/17 02/07/17 23:59 23:59 23:59 Intake Total 1403 2017 1094 Balance 1403 2017 1094 General: Alert, Oriented x3, Cooperative HEENT: Atraumatic, PERRLA, EOMI Neck: Supple, No JVD, No thyromegaly Lymphatic: no adenopathy Neuro: Alert, CN 2-12 Grossly Intact, Oriented Times 3 Cardiovascular: Regular rate, Normal S1, Normal S2 Respiratory: Chest non-tender, No respiratory distress, Breath sounds nml Abdomen: Normal bowel sounds, Soft, No tenderness Genitourinary: Normal Inspection Rectal: Non-Tender Extremities: No clubbing, No cyanosis, Normal pulses, No tenderness/swelling Skin: No rashes, No breakdown Comments/Notes: gluteal abscess improving with clean dry dressing and no worsening edema - Results Results: Laboratory Results WBC 6.9 x10^3/uL (4.8-10.8) 02/07/17 05:10 RBC 4.10 10^6/uL (4.70-6.10) L 02/07/17 05:10 Hgb 8.8 g/dL (14.0-18.0) L 02/07/17 05:10 Hct 28.1 % (42.0-52.0) L 02/07/17 05:10 MCV 68.5 fL (80.0-94.0) L 02/07/17 05:10 MCH 21.4 pg (27.0-31.0) L 02/07/17 05:10 MCHC 31.2 g/dL (32.0-36.0) L 02/07/17 05:10 RDW 18.1 % (12.0-15.0) H 02/07/17 05:10 Plt Count 421 10^3/uL (130-450) 02/07/17 05:10 MPV 7.7 fL (7.4-11.4) 02/07/17 05:10 Reticulocyte % (Auto) 1.27 % (0.5-2.3) 02/05/17 16:15 Neut # 4.4 10^3/uL (1.5-6.6) 02/07/17 05:10 Lymph # 1.6 10^3/uL (1.5-3.5) 02/07/17 05:10 [place] # 0.5 10^3/uL (0.0-1.0) 02/07/17 05:10 Eos # 0.3 10^3/uL (0.0-0.7) 02/07/17 05:10 Baso # 0.1 10^3/uL (0.0-0.1) 02/07/17 05:10 Absolute Nucleated RBC 0.01 x10^3/uL 02/07/17 05:10 Nucleated RBCs 0.1 /100WBC 02/07/17 05:10 Manual Slide Review Indicated 02/06/17 08:19 Platelet Estimate NORMAL (130-450,000) (NORMAL) 02/06/17 08:19 Platelet Morphology NORMAL APPEARANCE (NORMAL) 02/06/17 08:19 RBC Morph Micro Appear 2+ MICROCYTOSIS (NORMAL) 2+ HYPOCHROMASIA (NORMAL) 02/05/17 06:21 RBC Morph Micro Appear 2+ MICROCYTOSIS (NORMAL) 2+ HYPOCHROMASIA (NORMAL) 02/05/17 06:21 RBC Morph Micro Appear 2+ ANISOCYTOSIS (NORMAL) 1+ POLYCHROMASIA (NORMAL) 1 + HYPOCHROMASIA (NORMAL) 1+ OVALOCYTES (NORMAL) 02/06/17 08:19 RBC Morph Micro Appear 2+ ANISOCYTOSIS (NORMAL) 1+ POLYCHROMASIA (NORMAL) 1 + HYPOCHROMASIA (NORMAL) 1+ OVALOCYTES (NORMAL) 02/06/17 08:19 RBC Morph Micro Appear 2+ ANISOCYTOSIS (NORMAL) 1+ POLYCHROMASIA (NORMAL) 1 + HYPOCHROMASIA (NORMAL) 1+ OVALOCYTES (NORMAL) 02/06/17 08:19 RBC Morph Micro Appear 2+ ANISOCYTOSIS (NORMAL) 1+ POLYCHROMASIA (NORMAL) 1 + HYPOCHROMASIA (NORMAL) 1+ OVALOCYTES (NORMAL) 02/06/17 08:19 Absolute Retic 0.053 10^6/uL (0.020-0.110) 02/05/17 16:15 PT 14.6 secs (9.9-12.6) H 02/05/17 06:21 INR 1.3 (0.8-1.2) H 02/05/17 06:21 Sodium 138 mmol/L (135-145) 02/07/17 05:10 Potassium 4.0 mmol/L (3.5-5.0) 02/07/17 05:10 Chloride 108 mmol/L (101-111) 02/07/17 05:10 Carbon Dioxide 23 mmol/L (21-32) 02/07/17 05:10 Anion Gap 7.0 (6-13) 02/07/17 05:10 BUN 10 mg/dL (6-20) 02/07/17 05:10 Creatinine 0.6 mg/dL (0.6-1.2) 02/07/17 05:10 Estimated GFR (MDRD) 146 (>89) 02/07/17 05:10 Glucose 91 mg/dL (70-100) 02/07/17 05:10 Lactic Acid 0.9 mmol/L (0.5-2.2) 02/05/17 06:21 Calcium 8.2 mg/dL (8.5-10.3) L 02/07/17 05:10 Phosphorus 4.0 mg/dL (2.5-4.6) 02/05/17 06:21 Magnesium 2.1 mg/dL (1.7-2.8) 02/06/17 08:19 Iron 23 ug/dL (45-182) L 02/05/17 16:15 TIBC 234 ug/dL (250-450) L 02/05/17 16:15 % Saturation 10 % (20-50) L 02/05/17 16:15 Transferrin 167 mg/dL (180-329) L 02/05/17 16:15 Ferritin 315.4 ng/mL (23.9-336.2) 02/05/17 16:15 Total Bilirubin 0.6 mg/dL (0.2-1.0) 02/07/17 05:10 AST 23 IU/L (10-42) 02/07/17 05:10 ALT 28 IU/L (10-60) 02/07/17 05:10 Alkaline Phosphatase 46 IU/L (42-121) 02/07/17 05:10 Lactate Dehydrogenase 146 IU/L (91-225) 02/05/17 16:15 Troponin I < 0.04 ng/mL (<0.49) 02/04/17 16:19 Total Protein 6.4 g/dL (6.7-8.2) L 02/07/17 05:10 Albumin 2.9 g/dL (3.2-5.5) L 02/07/17 05:10 Globulin 3.5 g/dL (2.1-4.2) 02/07/17 05:10 Albumin/Globulin Ratio 0.8 (1.0-2.2) L 02/07/17 05:10 Amylase 106 U/L (28-100) H 02/06/17 08:19 Lipase 51 U/L (22-51) 02/06/17 08:19 Vitamin B12 313 pg/mL (180-914) 02/05/17 16:15 Urine Color YELLOW 02/05/17 17:20 Urine Clarity CLEAR (CLEAR) 02/05/17 17:20 Urine pH 5.5 PH (5.0-7.5) 02/05/17 17:20 Ur Specific Hustler >=1.030 (1.002-1.030) H 02/05/17 17:20 Urine Protein NEGATIVE mg/dL (NEGATIVE) 02/05/17 17:20 Urine Glucose (UA) NEGATIVE mg/dL (NEGATIVE) 02/05/17 17:20 Urine Ketones NEGATIVE mg/dL (NEGATIVE) 02/05/17 17:20 Urine Occult Blood NEGATIVE (NEGATIVE) 02/05/17 17:20 Urine Nitrite NEGATIVE (NEGATIVE) 02/05/17 17:20 Urine Bilirubin NEGATIVE (NEGATIVE) 02/05/17 17:20 Urine Urobilinogen 0.2 (NORMAL) E.U./dL (NORMAL) 02/05/17 17:20 Ur Leukocyte Esterase NEGATIVE (NEGATIVE) 02/05/17 17:20 Urine RBC 0-5 /HPF (0-5) 02/05/17 17:20 Urine WBC 0-3 /HPF (0-3) 02/05/17 17:20 Ur Squamous Epith Cells NONE SEEN (<= Few) 02/05/17 17:20 Urine Bacteria None Seen /HPF (None Seen) 02/05/17 17:20 Urine Culture Comments NOT INDICATED 02/05/17 17:20 Blood Type A POSITIVE 02/04/17 16:19 Antibody Screen NEGATIVE 02/04/17 16:19
[2017-02-07] MEDS: FERROUS SULFATE 325 MG TABLET PO SCH ×2 (09:19→17:18)
[2017-02-07] MEDS: SENNA 8.6 MG TABLET PO SCH (09:19)
[2017-02-07] MEDS: DOCUSATE SODIUM 250 MG CAPSULE PO SCH (09:19)
[2017-02-07] MEDS: CHOLECALCIFEROL 5,000 UNIT CAPSULE PO SCH ×2 (09:19→21:46)
[2017-02-07] MEDS: SULFAMETH/TRIMETH DS 800/160 MG TABLET PO SCH ×2 (09:19→21:46)
[2017-02-07] MEDS: POLYETHYLENE GLYCOL 3350 17 GM PACKET PO SCH (09:19)
[2017-02-07] MEDS: SILVER SULFADIAZINE CREAM 25 GM TUBE TOP SCH ×2 (09:20→21:46)
[2017-02-07] MEDS: ENOXAPARIN 40 MG/0.4 ML SYRINGE SUBQ SCH (09:20)
[2017-02-07] MEDS ORDERED: metroNIDAZOLE 250 MG TABLET PO SCH (14:00)
[2017-02-07] MEDS: SODIUM CHLORIDE FLUSH 0.9% 10 ML SYRINGE IVP PRN (15:58)
[2017-02-07] MEDS: metroNIDAZOLE 250 MG TABLET PO SCH ×2 (17:18→23:58)
[2017-02-08] MEDS: SODIUM CHLORIDE 0.9% 1,000 ML IV SCH (06:07)
[2017-02-08] MEDS: SODIUM CHLORIDE FLUSH 0.9% 10 ML SYRINGE IVP SCH ×2 (06:12→13:49)
[2017-02-08] MEDS: metroNIDAZOLE 250 MG TABLET PO SCH ×2 (06:12→13:36)
[2017-02-08] MEDS: PANTOPRAZOLE 40 MG TABLET PO SCH (06:14)
--- NOTE | 2017-02-08 08:05 | Discharge Plan ---
Discharge Plan Disposition: Home, Self Care Condition: Good Prescriptions: metroNIDAZOLE [Flagyl] 500 mg PO Q6HR #20 tablet Sulfamethox/Trimeth 800/160 [Bactrim Ds] 1 tab PO BID #20 tablet Saccharomyces Boulardii [Florastor] 250 mg PO BID #30 capsule Cholecalciferol [Vitamin D3] 5,000 unit PO BID #60 capsule Alprazolam [Xanax] 0.5 mg PO DAILY #30 tablet Diet: Regular (avoid gluten and dairy products) Activity Restrictions: Activity as Tolerated Shower Restrictions: No (cover wound on buttock with tegaderm) Driving Restrictions: No Weight Bearing: Full Weight Instruction Topics: Perianal Abscess, Drainage Abscess Additional Instructions or Follow Up instructions: Please take all home medication as prescribed. You have been given prescriptions for Bactrim, Xanax, vitamin D and a probiotic. Take all as prescribed. Continue to eat a regular diet and avoid gluten and dairy since these can cause inflammation for the first 3 weeks. You need to avoid soda and drink more water during the day. Get plenty of sleep, at least 7-8 hours at night if possible. You can take rest breaks during the day Return to the [facility] center in 2 weeks for appointment for wound care. Sooner if you see worsening redness or drainage. Return to the ER if you have a fever or sweats and chills. Call Dr Bustamante office for followup for evaluation of the wound in 2 weeks. The nursing staff have provided you with this number. Get plenty of exercise during the day. walking is great and helps you to heal better. Return to the ER or call 911 if you have shortness of breath, chest pain. Over the counter medications: Melatonin 10mg for sleep Vitamin C Zinc Bcomplex for men Multivitamins Magnesium 400mg twice a day Follow-Up Care: [facility] Clinic - Wound/Ostomy No Smoking: If you smoke, Please STOP! Call for help. Follow-up with: Sampson Keys DO [Physician No Access] -
--- NOTE | 2017-02-08 08:22 | DISCHARGE SUMMARY ---
"Discharge Summary Admit Date: 02/05/17 Discharge Date: 02/08/17 Discharging Provider: Ailin Welsh APRN Primary Care Provider: Sampson Keys Code Status: Attempt Resuscitation Condition at Discharge: Good Discharge Disposition: 01 Home, Self Care Discharge Facility Name: home - DIAGNOSES Admission Diagnoses: 1. Acute heroine withdrawal 2. Acute right gluteal abscess 3. Acute on chronic Iron deficiency anemia 4. acute electrolyte imbalances 5. Chronic low back pain 6. Acute extreme fatigue Discharge Diagnoses with Status of Each Condition: 1. Acute Cellulitis with cutaneous abscess of right buttock, unspecified bacterial organism with leukocytosis 2. Opiod abuse with addiction and polysubstance 3. acute on chronic Heroine abuse with acute withdrawal 4. Acute fatigue secondary to electrolyte imbalances 5. Alcohol abuse with dependence 6. Acute on chronic iron deficiency anemia 7. Acute on chronic low back pain with possible herniation of lumbar region of the back - HPI History of Present Illness: Patient is a 42 year old male with past medical history of iron deficiency anemia, gluteal abscesses, insomnia, chronic back pain and IV drug abuse with heroin who presented to the emergency department with chief complaint of generalized weakness, fatigue and tremors. The patient states that he had been clean from heroin for nearly 10 years but 8 months ago started using again as he was having back pain and insomnia. He states initially when he started back up he was still functional and continuing to work but for the past 1.5 months he has been unable to work and was not functional at all. He continued to use IV heroin all day every day. Finally one week ago he decided he wanted to stop. He went to [facility] for detox. At [place] he was found to have a right gluteal abscess that was drained and he was prescribed antibiotics. There was however no beds at their facility so the patient was sent to a detox facility in [facility]. He states he had to private pay them $ 3000 up front and another $1000 after he started treatment as he did not have any insurance. The patient states that he was started back up on suboxone at the detox facility and they sent him home after 4 days as he no longer had money to pay privately. The patient states that when he arrived at the facility he was able to walk into the facility under his own strength but he needed a wheelchair when he was sent home. He states that since returning home he has been getting weaker and weaker to a point where he can barely stand up. He also states he is very fatigued and gets fatigued and short of breath after just walking 5 feet and cannot get any further because he feels so tired. The patient states that this afternoon he began to have uncontrollable tremors and finally asked his mom to bring him to the hospital because he was too weak to function at home. The patient admits to being diaphoretic, having tremors and being very weak. He states he has felt very cold but does not think he has had any fevers. He states that the abscess on his right gluteal region continues to drain but has not improved despite the antibiotics. He denies any chest pain, orthopnea, increased lower extremity swelling, abdominal pain, nausea, vomiting , urinary symptoms or any focal neurological deficits. Patient was found to be in active withdrawal in the ER as he was having tremors and was too weak to stand up or be able to go home and function. The patient was found to have a leukocytosis and continued to have firm gluteal abscess on the right gluteal area with purulent drainage. He was admitted to the hospital for heroin withdrawal and treatment of his gluteal abscess - CONSULTS | PROCEDURES Consultations: surgery and wound care Procedures: I/D of buttock with packing for abscess on right gluteal fold. - HOSPITAL COURSE Hospital Course: Patient is a 42 year old male with past history of iron deficiency anemia, substance abuse, gluteal abscess and chronic back pain who was admitted thru the ER for leukocytosis and cellulitis, heroin withdrawal, generalized weakness , tremors, and found to be in active withdrawal. He was admitted for IV antibiotic therapy, drainage of the abscess in the buttock, pain management and surgical consult. He also was found to be anemic and have electrolyte imbalances of both magnesium, potassium and sodium. His electrolytes were replaced and he was counseled on substance abuse with nursing and family caseworker. He received IVF for gentle hydration. he was given Ativan for tremors along with xanax for the ansiety. He was also given a Banana bag IV for nutrtional support. He received both IV and oral pain management for his chronic back pain that was acute during admission. he was assisted to ambulate with nursing and evaluated by PT and OT. His mother was supportive during the inpatient treatment. He received both oral and IV medications for nausea and vomiting. surgery consulted on patient for abscess drainage and he saw [facility] for wound consult with followup after discharge. He remained inpatient for 4 days and on 4th day was suffering from acute pain and numbness and tingling, MRI was ordered to evaluate the lower back. patient was given xanax for the spasms and will be discharged home after with instructions for followup with PCP, wound care, and surgery in 2 weeks. - ALLERGIES Allergies/Adverse Reactions: Allergies Allergy/AdvReac Type Severity Reaction Status Date / Time No Known Drug Allergies Allergy Verified 02/04/17 14:46 - MEDICATIONS Home Medications: Ambulatory Orders Medication Instructions Recorded Confirmed Buprenorphine HCl/Naloxone HCl 2 tab PO DAILY 02/04/17 02/04/17 [Suboxone 4 mg-1 mg Sl Film] cloNIDine [Catapres] 0.1 mg PO DAILY 02/04/17 02/04/17 Alprazolam [Xanax] 0.5 mg PO DAILY #30 tablet 02/08/17 Cholecalciferol [Vitamin D3] 5,000 unit PO BID #60 capsule 02/08/17 Saccharomyces Boulardii [Florastor] 250 mg PO BID #30 capsule 02/08/17 Sulfamethox/Trimeth 800/160 1 tab PO BID tablet 02/08/17 [Bactrim Ds] Sulfamethox/Trimeth 800/160 1 tab PO BID #20 tablet 02/08/17 [Bactrim Ds] cloNIDine [Catapres] 0.1 mg PO Q6H PRN #0 tablet 02/08/17 metroNIDAZOLE [Flagyl] 500 mg PO Q6HR #20 tablet 02/08/17 - PHYSICAL EXAM AT DISCHARGE General Appearance: positive: No acute distress, Alert Eyes Bilateral: positive: Normal inspection, PERRL, EOMI ENT: positive: ENT inspection nml, Pharynx nml, No signs of dehydration Neck: positive: Nml inspection, Thyroid nml, No JVD Respiratory: positive: Chest non-tender, No respiratory distress, Breath sounds nml Cardiovascular: positive: Regular rate & rhythm, No murmur, No gallop Peripheral Pulses: positive: 2+ Abdomen: positive: Non-tender, No organomegaly, Nml bowel sounds, No distention Skin: positive: Color nml, No rash, Warm, Dry Extremities: positive: Non-tender, Full ROM, Nml appearance, No pedal edema Neurologic/Psychiatric: positive: Oriented x3, CN's nml (2-12), Motor nml, Sensation nml, Mood/affect nml - LABS Result Diagrams: 02/07/17 05:10 02/07/17 05:10 Other Lab Results: Abnormal Lab Results 02/06/17 02/06/17 02/07/17 08:19 08:19 05:10 RBC 4.54 10^6/uL L 10^6/uL 4.10 10^6/uL L 10^6/uL (4.70-6.10) (4.70-6.10) Hgb 9.6 g/dL L g/dL 8.8 g/dL L g/dL (14.0-18.0) (14.0-18.0) Hct 30.8 % L % 28.1 % L % (42.0-52.0) (42.0-52.0) MCV 67.8 fL L fL 68.5 fL L fL (80.0-94.0) (80.0-94.0) MCH 21.2 pg L pg 21.4 pg L pg (27.0-31.0) (27.0-31.0) MCHC 31.2 g/dL L g/dL 31.2 g/dL L g/dL (32.0-36.0) (32.0-36.0) RDW 18.5 % H % 18.1 % H % (12.0-15.0) (12.0-15.0) MPV 7.2 fL L fL (7.4-11.4) Lymph # 1.3 10^3/uL L 10^3/uL (1.5-3.5) Baso # 0.2 10^3/uL H 10^3/uL (0.0-0.1) Potassium 3.3 mmol/L L mmol/L (3.5-5.0) Calcium Total Protein Albumin Albumin/Globulin Ratio 0.8 L (1.0-2.2) Amylase 106 U/L H U/L (28-100) 02/07/17 05:10 RBC Hgb Hct MCV MCH MCHC RDW MPV Lymph # Baso # Potassium Calcium 8.2 mg/dL L mg/dL (8.5-10.3) Total Protein 6.4 g/dL L g/dL (6.7-8.2) Albumin 2.9 g/dL L g/dL (3.2-5.5) Albumin/Globulin Ratio 0.8 L (1.0-2.2) Amylase - FOLLOW UP Follow Up: Please followup with your primary care provider in [address] Bustamante in 2 weeks for your wound. Please see [facility] for wound care. Pt counseled regarding expected course and signs and symptoms for which I believe an urgent re-evaluation would be necessary. Pt with good understanding and agreement to plan. Time spent on discharge planning was 45 minutes for education and planning"
[2017-02-08] MEDS: FERROUS SULFATE 325 MG TABLET PO SCH (08:48)
[2017-02-08] MEDS: CHOLECALCIFEROL 5,000 UNIT CAPSULE PO SCH (08:48)
[2017-02-08] MEDS: SULFAMETH/TRIMETH DS 800/160 MG TABLET PO SCH (08:48)
[2017-02-08] MEDS: POLYETHYLENE GLYCOL 3350 17 GM PACKET PO SCH (08:49)
[2017-02-08] MEDS: DOCUSATE SODIUM 250 MG CAPSULE PO SCH (08:49)
[2017-02-08] MEDS: ENOXAPARIN 40 MG/0.4 ML SYRINGE SUBQ SCH (08:49)
[2017-02-08] MEDS: SENNA 8.6 MG TABLET PO SCH (08:50)
[2017-02-08] MEDS: SILVER SULFADIAZINE CREAM 25 GM TUBE TOP SCH (08:50)
[2017-02-08] MEDS ORDERED: MUPIROCIN 2% CREAM 30 GM TUBE TOP SCH (09:00)
[2017-02-08 09:25] VITALS: BP 126/79
[2017-02-08] MEDS: MUPIROCIN 2% OINT 22 GM TUBE TOP SCH ×2 (10:57→13:49)
--- NOTE | 2017-02-08 12:33 | MRI Report ---
EXAM: MRI LUMBAR SPINE WITHOUT CONTRAST EXAM DATE: 02/08/2017 11:18 AM. CLINICAL HISTORY: Numbness/tingling bilateral lower extremity/ chronic pain. COMPARISON: None. TECHNIQUE: Multiplanar, multisequence T1-weighted and fluid-sensitive sequences of the lumbar spine f rom T12 to S1 without contrast. Other: None. FINDINGS: Spinal Cord: The conus terminates at L1. No signal abnormality in the visualized spinal cord. Alignment: Normal. No scoliosis or spondylolisthesis. Bone Marrow: Five [id number] lumbar vertebral bodies are assumed. There is a small amount of mar row edema at the inferior right aspect of the L5-S1 disk space. No erosive or destructive changes. Disk Levels/Facets: T12-L1: Unremarkable. L1-L2: Unremarkable. L2-L3: Unremarkable. L3-L4: Unremarkable. L4-L5: Normal disk, prominent facets. No central or foraminal stenosis. L5-S1: Disk dehydration, mild right paracentral disk bulge. No protrusion. No central stenosis. Mild bilateral foraminal stenosis. Musculature: Mild fatty atrophy of the multifidus muscle. Other: The visualized pelvic cavity is unremarkable. IMPRESSION: 1. Spinal cord terminates at L1 which is normal. Small amount of marrow edema at the inferior right a spect of L5-S1 disk space, of doubtful consequence. 2. L4-L5 shows a normal disk and prominent facets. No stenosis. 3. L5-S1 shows right paracentral minimal disk bulge, no protrusion. No central stenosis. Mild bilater al foraminal stenosis. 4. Mild fatty atrophy of the multifidus musculature. Comment: The following findings are so common in adults without low back pain that while we report th eir presence, they must be interpreted with caution and in the context of the clinical situation. (Re favio Fisher et al, Spine 2001) Prevalence of findings in patients without low back pain: Disk degeneration (any evidence): 92% Disk desiccation/T2 signal loss: 83% Disk height loss: 56% Disk bulge: 64% Disk protrusion: 32% Annular tear/high intensity zone: 38% RADIA Referring Provider Line: [phone] SITE ID: [id number]
== END 2017-02-08 14:32 | disposition home or self-care (01) | DRG 603 ==
LOC: ED 14:33 → OBS 20:43 → OBSVTOIN 02-05 10:50 → MS2 02-05 13:11
PROVIDERS: ADMIT Internal Medicine; ATTEND Nurse Practitioner
DX: L03.317 Cellulitis of buttock (principal); F11.23 Opioid dependence with withdrawal; F10.239 Alcohol dependence with withdrawal, unspecified; E87.1 Hypo-osmolality and hyponatremia; E87.6 Hypokalemia; D50.8 Other iron deficiency anemias; G89.29 Other chronic pain; M51.26 Other intervertebral disc displacement, lumbar region; G47.00 Insomnia, unspecified; F41.9 Anxiety disorder, unspecified; R01.1 Cardiac murmur, unspecified; Z79.2 Long term (current) use of antibiotics; Z79.899 Other long term (current) drug therapy
CPT/HCPCS: 36415; 71010; 72148; 76857; 80053; 81001; 82150; 82607; 82728; 83540; 83605; 83615; 83690; 83735; 84100; 84466; 84484; 85025; 85044; 85610; 86850; 86900; 86901; 87040; 87070; 87086; 87205; 93005; 93306; 96372; 96374; 96376; 99284

== ENCOUNTER 2017-03-01 08:00 | Outpatient (CLI) | payer MEDICAID | END 2017-03-01 08:01 | disposition home or self-care (01) | LOC: LAB.S 08:00 | PROVIDERS: ATTEND Nurse Practitioner Family | DX: D53.8 Other specified nutritional anemias (principal) | CPT/HCPCS: 36415; 82728; 83540; 84466; 85025 ==

== ENCOUNTER 2017-03-11 15:06 | Outpatient (CLI) | payer MEDICAID ==
[2017-03-11 16:18] LABS: BASOPHILS # (AUTO) 0.1 10^3/uL (0.0-0.1); EOSINOPHILS # (AUTO) 0.1 10^3/uL (0.0-0.7); EOSINOPHILS % (AUTO) 0.9 %; HCT - HEMATOCRIT 41.2 % (42.0-52.0); HGB - HEMOGLOBIN 13.4 g/dL (14.0-18.0); LYMPHOCYTES # (AUTO) 1.4 10^3/uL (1.5-3.5); MEAN CORPUSCULAR HEMOGLOBIN 24.7 pg (27.0-31.0); MEAN CORPUSCULAR HGB CONC 32.5 g/dL (32.0-36.0); MEAN CORPUSCULAR VOLUME 76.1 fL (80.0-94.0); MEAN PLATELET VOLUME 7.8 fL (7.4-11.4); MONOCYTES # (AUTO) 0.6 10^3/uL (0.0-1.0); MONOCYTES % (AUTO) 6.7 %; NEUTROPHILS # (AUTO) 6.2 10^3/uL (1.5-6.6); NEUTROPHILS % (AUTO) 74.4 %; RED BLOOD COUNT 5.41 10^6/uL (4.70-6.10); RED CELL DISTRIBUTION WIDTH 25.8 % (12.0-15.0); UNCORRECTED WHITE BLOOD COUNT 8.3 x10^3/uL; WHITE BLOOD COUNT 8.3 x10^3/uL (4.8-10.8)
[2017-03-11 16:24] LABS: IRON 61 ug/dL (45-182); TOTAL IRON BINDING CAPACITY 339 ug/dL (250-450); TRANSFERRIN 242 mg/dL (180-329)
[2017-03-11 16:35] LABS: PLATELET ESTIMATE, MANUAL NORMAL (130-450,000) (NORMAL); PLATELET MORPHOLOGY NORMAL APPEARANCE (NORMAL)
== END 2017-03-11 15:07 | disposition home or self-care (01) ==
LOC: LAB 15:06
PROVIDERS: ATTEND Nurse Practitioner Family
DX: D53.8 Other specified nutritional anemias (principal)
CPT/HCPCS: 36415; 82728; 83540; 84466; 85025

== ENCOUNTER 2023-01-19 08:37 | Outpatient (CLI) | payer SELFPAY | END 2023-01-19 08:38 | disposition home or self-care (01) | LOC: LAB.S 08:37 | PROVIDERS: ATTEND Family Medicine | DX: F11.20 Opioid dependence, uncomplicated (principal) | CPT/HCPCS: 80307; 80347; 80348; 80354; 81599 ==